=== PATIENT | female | born 1955 | race Caucasian/White ===

== ENCOUNTER 2024-09-29 13:01 | Outpatient (CLI) | payer MEDICARE, SELFPAY ==
--- NOTE | ~2024-09-29 | DEXA_ITS ---
Bone Density Report Name: TING GASTON Age: 69 Sex: Female Ethnicity: White Date of : 1955 Indication: postmenopausal; screening for osteoporosis; height loss; Referring Provider: MARZENA BAILEY Study: Bone densitometry was performed. Exam Date: September 29, 2024 Accession number: [id number] Bone Density: Region BMD T-score Z-score Classification AP Spine(L1-L4) 1.262 2.0 4.2 Normal Femoral Neck (Right) 0.730 -1.1 0.8 Osteopenia Total Hip (Right) 0.913 -0.2 1.4 Normal World Health Organization criteria for BMD impression classify patients as: Normal (T-score at or above -1.0), Osteopenia (T-score between -1.0 and -2.5), or Osteoporosis (T-score at or below -2.5). Clinical Information Provided by Patient: Patient maximum height was 68 Menopause Age: 55 No regular weight bearing exercise Does not regularly consume dairy products Drinks caffeinated beverages Onset of menses at age 10 Number of children 1 Impression: The patient has low bone mass, based on the Right Femoral Neck T-score. Discussion: BONE DENSITY IS LOW AT ONE OR MORE SKELETAL SITES. This patient's lowest T-score is low at one or more skeletal sites. It meets the World Health Organization's (WHO) criteria for ?low bone mass? (T-score between -1.0 and -2.5). The patient's 10-year risk of fracture as calculated by FRAX is less than the threshold where pharmacological therapy is recommended by the National Osteoporosis Foundation (NOF). However, all treatment decisions require clinical judgment and consideration of individual patient factors, including patient preferences, comorbidities, previous drug use, risk factors not captured in the FRAX model (e.g., frailty, falls, vitamin D deficiency, increased bone turnover, interval significant decline in bone density) and possible under or overestimation of fracture risk by FRAX. The patient should follow a healthful lifestyle (good nutrition with adequate calcium and vitamin D, and appropriate weight-bearing exercise). Follow-Up: Consider repeating this study in 2 to 3 years to reassess this patient's status, or sooner if there is some new clinical indication. Reported by: MAHAMED on 09/29/2024 1:28:00 PM. Reviewed, dictated and finalized at location A.
--- OUTSIDE RECORDS SUMMARY | 2024-09-29 14:27 | XMS_ITS | Clinical Summary ---
Author Organization [facility] Address [address] [place] [address] Phone Care Team Providers Care Tribal Delegate Name Role Phone Tommy Levi J DO Primary Care Provider [phone] Allergies No known active allergies Medications atorvastatin (LIPITOR) 20 MG Tablet Take 20 mg by mouth. 9 Active diclofenac (VOLTAREN) 50 MG Tablet Delayed Response Take 1 Tablet by mouth 2 times daily. 60 Tablet 3 2 Active atorvastatin (LIPITOR) 20 MG Tablet Take 1 Tablet by mouth daily. 2 Active methylPREDNISol one (MEDROL DOSPACK) 4 MG Tablet Therapy PackIndications :Chronic pain of right ankle Use as per instructions on package. 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 09/17/2021 Bursitis of right patella 09/17/2021 Primary osteoarthritis of right knee 09/17/2021 Right knee pain 09/17/2021 Family History Medical History Relation Name Comments Breast Cancer Neg Hx Ovarian Cancer Neg Hx Social History Tobacco Use Types Packs/Day Years Used Date Smoking Tobacco: Never Smokeless Tobacco: Never Tobacco Cessation:Counseling Given: Not Answered Comments No Sex and Gender Information Value Date Recorded Sex Assigned at Not on file Legal Sex Female 3:09 AM [employer] Gender Identity Not on file Sexual Orientation Not on file Last Filed Vital Signs Vital Sign Reading Time Taken Comments Blood Pressure 118/68 04/30/2023 10:29 AM CDT Pulse 79 04/30/2023 10:29 AM CDT Temperature - - Respiratory Rate 16 07/04/2020 11:28 AM [employer] Oxygen Saturation 98% 04/30/2023 10:29 AM CDT Inhaled Oxygen Concentration - - Weight 94.8 kg (209 lb) 04/30/2023 10:29 AM CDT patient stated Height 172.7 cm (5' 8 ) 04/30/2023 10:29 AM CDT patient stated Body Mass Index 31.78 04/30/2023 10:29 AM CDT Plan of Treatment Health Maintenance Due Date Last Done Comments Colonoscopy 1998 Colorectal Cancer Screening 1998 Cologuard 2003 Immunochemical Fecal Occult Blood 2003 Pneumococcal Immunization (50+ years) (1 of 1 - PCV) 2003 Zoster Immunization (1 of 2) 2003 Mammogram 02/06/2020 02/05/2019, 01/25, 07/30/2013, Additional history exists DEXA Bone Density 07/12/2021 07/12/2019 Influenza Immunization (#1) 2024 SARS-COV-2 Immunization ( season) 2024 09/13/2022, 11/06/2021, 05/02/2021, Additional history exists Respiratory Syncytial Virus (RSV) Immunization (Adult) (1 - 1-dose 75+ series) 2028 Hepatitis C Virus (HCV) Screening Completed 07/13/2018, 07/13/2018 DTaP/Tdap/Td Immunization Discontinued 04/03/2023 TdaP Immunization Completed 04/03/2023 Hepatitis B Immunization Aged Out No longer eligible based on patient's age to complete this topic Meningococcal Immunization (ACWY) Aged Out No longer eligible based on patient's age to complete this topic Rotavirus Immunization Aged Out No lo nger eligible based on patient's age to complete this topic Procedures Procedure Name Priority Date/Time Associated Diagnosis Comments MURIEL SCREENING BILATERAL DIGITAL W CAD W WILTON Routine 02/05/2019 10:53 AM CDT Visit for screening mammogram from Last 3 Months or Most Recently Relevant to Health Maintenance Results * [facility] SCREENING BILATERAL DIGITAL W CAD W [place]IL[place] (02/05/2019 10:53 AM CDT) Anatomical Region Laterality Modality breast Bilateral Mammography 02/05/2019 10:5 3 AM CDT Impressions 02/07/2019 3:19 PM CDT IMPRESSION: 1. There is no mammographic evidence of malignancy. RECOMMENDATIONS: 1. Recommend a screening mammogram in one year. BI-RADS: 1 Negative. Letter sent: Mammography Normal. Narrative 02/07/2019 3:19 PM CDT DICTATING PHYSICIAN: Сергей Ngo M.D. EXAM: [facility] SCREENING BILATERAL DIGITAL W CAD W WILTON. DATE: 02/05/2019 10:53 AM. COMPARISON: Breast imaging dated 07/30/2013, 12/11/2010. HISTORY: Routine screening mammogram. TECHNIQUE: Bilateral mammographic views were obtained. This study was also evaluated with a Computer Aided Detection (CAD) system. Additionally, 3-D multiplanar mammographic projections were obtained with computer reconstruction into 1 mm parallel slices (tomosynthesis). FINDINGS: The breast parenchyma is composed of scattered fibroglandular tissue. No suspicious mammographic finding. There has been no suspicious interval change. . Procedure Note Сергей Ngo MD - 02/07/2019 DICTATING PHYSICIAN: Сергей Ngo M.D. EXAM: [facility] SCREENING BILATERAL DIGITAL W CAD W WILTON. DATE: 02/05/2019 10:53 AM. COMPARISON: Breast imaging dated 07/30/2013, 12/11/2010. HISTORY: Routine screening mammogram. TECHNIQUE: Bilateral mammographic views were obtained. This study wasalso evaluated with a Computer Aided Detection (CAD) system. Additionally,3-D multiplanar mammographic projections were obtained with computerreconstruction into 1 mm parallel slices (tomosynthesis). FINDINGS: The breast parenchyma is composed of scattered fibroglandulartissue. No suspicious mammographic finding. There has been no suspiciousinterval change. . IMPRESSION: 1. There is no mammographic evidence of malignancy. RECOMMENDATIONS: 1. Recommend a screening mammogram in one year. BI-RADS: 1 Negative. Letter sent: Mammography Normal. Levi Sanders DO IMG MAMMO ORDERABLES Final Re sult from Last 3 Months or Most Recently Relevant to Health Maintenance Insurance MEDICARE [facility] Care Teams Tribal Delegate Relationship Specialty Start Date End Date Levi Sanders DO [address] [place] [address] PCP - General Family Medicine 08/03/18
--- OUTSIDE RECORDS SUMMARY | 2024-09-29 14:27 | XMS_ITS | CONTINUITY OF CARE DOCUMENT ---
Author Name stacy kumar Address Unknown Organization [facility] Address [address] [place] [address] [address] [place] [address] Phone [phone] Care Team Providers Care Biomass Production Manager Name Role Phone Josue Christopher MD, Mic Healy Unavailable Antoine Pierce DO Unavailable Antoine Pierce DO Unavailable PROBLEMS Condition Status Date Provider Notes Cardiovascular screening active Leonor Bryan INSURANCE PROVIDERS Payer name Policy type / Coverage type [employer] ID SELF PAY TREATMENT PLAN Date Name CT, Coronary Calcium Score HISTORY OF PROCEDURES Procedure Date Procedure Name Provider Procedure Notes S tatus CT- Coronary CA score Mic Salas Jr, MD completed
== END 2024-09-29 13:02 | disposition home or self-care (01) ==
PROVIDERS: PCP Internal Medicine; Visit Provider Internal Medicine
DX: Z78.0 Asymptomatic menopausal state (principal); M85.88 Other specified disorders of bone density and structure, other site
CPT/HCPCS: 77080

== ENCOUNTER 2024-10-14 09:13 | Outpatient (CLI) | payer MEDICARE, SELFPAY ==
--- NOTE | ~2024-10-14 | MR_ITS ---
MRI of the left ankle Clinical history: Arthralgia Technique: Coronal proton-density and proton-density fat-sat images, axial proton-density and proton- density fat-sat images, and sagittal proton-density and proton-density fat-sat images were acquired. Findings: Syndesmotic ligaments are intact. Anterior and posterior talofibular ligaments, and calcane ofibular ligament are intact. Deltoid ligament is intact. Medial flexor tendons, peroneal tendons, and Achilles tendon are intact. There is complete rupture of the tibialis anterior tendon which is retracted to the level of the distal tibia. The retracted dist al tendon edges hyperintense, thickened, and frayed. Remaining anterior extensor tendons are intact. No osteochondral lesion of the talar dome is intact. Bone marrow signals and joint spaces are well pr eserved. Plantar fascia intact. There is subcutaneous soft tissue edema especially at the anterior an d medial aspects of the ankle. Impression: Complete rupture of the tibialis anterior tendon with retraction, as detailed above. Reviewed, dictated and finalized at location . Impression: Complete rupture of the tibialis anterior tendon with retraction, as detailed a paty.
== END 2024-10-14 09:14 | disposition home or self-care (01) ==
LOC: MICIMG 09:14
PROVIDERS: PCP Internal Medicine; Visit Provider Podiatrist Foot & Ankle Surgery
DX: S96.812A Strain of other specified muscles and tendons at ankle and foot level, left foot, initial encounter (principal); X58.XXXA Exposure to other specified factors, initial encounter
CPT/HCPCS: 73721